=== PATIENT | male | born 1995 | race Caucasian/White ===

== ENCOUNTER → 2016-08-25 | Outpatient (CLI) | payer BC ==
--- NOTE | 2016-08-26 06:52 | CT ---
EXAMINATION TYPE: CT brain w con DATE OF EXAM: 08/25/2016 7:30 PM COMPARISON: NONE HISTORY: Pt states of PERDOMO and near syncope x1 week ago. CT DLP: 945.9 mGycm Automated exposure control for dose reduction was used. CONTRAST: CT scan of the head is performed with IV Contrast, patient injected with 100 mL of Omnipaque 300. FINDINGS: Central structures are midline. There is no evidence of hydrocephalus. No acute focal lesion, mass ef fect or midline shift is seen. I do not see evidence of intracranial blood. There is no abnormal enha ncement. There is chronic mucoperiosteal disease involving the ethmoid and sphenoid sinuses bilaterally. There is a 2.9 cm retention cyst or polyp in the right sphenoid sinus and a 1.8 cm retention cyst or polyp in the left ethmoid sinus. Mastoid air cells are clear. IMPRESSION: 1. NO ACUTE INTRACRANIAL ABNORMALITY. 2. CHRONIC SINUS MUCOSAL DISEASE.
== END | disposition home or self-care (01) ==
LOC: RADCTMAIN 18:37
PROVIDERS: ATTEND Internal Medicine
DX: R55 Syncope and collapse (principal); R51 Headache; G51.9 Disorder of facial nerve, unspecified
CPT/HCPCS: 70460; Q9967

== ENCOUNTER → 2018-07-24 | Outpatient (CLI) | payer BC ==
--- NOTE | 2018-07-24 08:53 | US ---
EXAMINATION TYPE: US kidneys/renal and bladder DATE OF EXAM: 07/24/2018 COMPARISON: None CLINICAL HISTORY: R31.9 Hematuria. Microscopic hematuria, patient states having back pain EXAM MEASUREMENTS: Right Kidney: 10.8 x 5.1 x 4.5 cm Left Kidney: 10.4 x 5.0 x 5.3 cm Right Kidney: No hydronephrosis or masses seen Left Kidney: No hydronephrosis or masses seen, prominent left renal cortex Bladder: mildly distended, wnl as visualized Bilateral Jets seen IMPRESSION: Lobulated cortical margin of the left kidney recommend CT scan to exclude neoplasm.
== END | disposition home or self-care (01) ==
LOC: RADUSWWP 08:18
PROVIDERS: ATTEND Internal Medicine
DX: R31.9 Hematuria, unspecified (principal)
CPT/HCPCS: 76770

== ENCOUNTER → 2018-07-30 | Outpatient (CLI) | payer BC | END | disposition home or self-care (01) | LOC: LABWHC1 06:49 | PROVIDERS: ATTEND Internal Medicine | DX: R94.4 Abnormal results of kidney function studies (principal) | CPT/HCPCS: 36415; 82565; 84520 ==

== ENCOUNTER → 2018-08-06 | Outpatient (CLI) | payer BC ==
--- NOTE | 2018-08-06 09:07 | CT ---
EXAMINATION TYPE: CT abdomen wo/w con DATE OF EXAM: 08/06/2018 COMPARISON: 12/04/2011 HISTORY: Abn US of Lt kidney, back pain CT DLP: 1630 mGycm Automated exposure control for dose reduction was used. TECHNIQUE: Helical acquisition of images was performed from the lung bases through the top of iliac crest to include entire abdomen. CONTRAST: Performed with Oral Contrast and without and with IV Contrast, patient injected with 100 mL of Isovue 300. FINDINGS: LUNG BASES: No significant abnormality is appreciated. LIVER/GB: No significant abnormality is appreciated. PANCREAS: No significant abnormality is seen. SPLEEN: No significant abnormality is seen. ADRENALS: No significant abnormality is seen. KIDNEYS: No evidence for renal mass. Hydronephrosis not present. No nephrolithiasis. BOWEL: No significant abnormality is seen. LYMPH NODES: No significant abnormality is seen. OSSEOUS STRUCTURES: No significant abnormality is seen. FREE AIR: No free air is visualized. OTHER: IMPRESSION: NO DISTINCT ABNORMALITY IDENTIFIED.
== END | disposition home or self-care (01) ==
LOC: RADCTMAIN 07:49
PROVIDERS: ATTEND Internal Medicine
DX: R31.9 Hematuria, unspecified (principal); N28.9 Disorder of kidney and ureter, unspecified
CPT/HCPCS: 74170

== ENCOUNTER → 2019-04-25 | Outpatient (CLI) | payer BC ==
--- NOTE | 2019-04-25 11:06 | FL ---
EXAMINATION TYPE: FL barium swallow DATE OF EXAM: 04/25/2019 LIMITED UGI-ESOPHAGRAM: CLINICAL HISTORY: Lamont fundoplication surgery in 2012 for hiatal hernia and ulcers with recurrent sore throat, voice hoarseness, and headache. No relief on restarting reflux medication. TECHNIQUE: Limited esophagram is performed utilizing 20 oz of thin barium. A total of 0.38 minutes o f fluoroscopic time was utilized during procedure. 28 spot images are saved to PACS. FINDINGS: The patient swallowed contrast without difficulty or delay. Esophageal peristalsis and mo tility are within normal limits. There is good flow of contrast along the diaphragmatic hiatus into t he stomach, there is no evidence of contrast extravasation to suggest leak. No recurrent hiatal herni a is seen. Patient remains asymptomatic. IMPRESSION: No evidence of recurrent hernia or significant obstruction status post Lamont fundoplicat ion surgery 2011. Unremarkable study.
== END | disposition home or self-care (01) ==
LOC: RADUSWWP 10:01
PROVIDERS: ATTEND Otolaryngology Otolaryngology/Facial Plastic Surgery
DX: K21.9 Gastro-esophageal reflux disease without esophagitis (principal); Z98.890 Other specified postprocedural states
CPT/HCPCS: 74220

== ENCOUNTER 2020-07-05 18:38 | Emergency (ER) | payer BC, OTHER ==
[2020-07-05 18:55] VITALS: BP 129/85; PULSE 85; RESP 18; TEMP 98.8
[2020-07-05] MEDS ORDERED: SODIUM CHLORIDE 0.9% 1,000 ML IV STA (19:05)
--- NOTE | 2020-07-05 19:07 | ED ---
SOB HPI - General Chief Complaint: Shortness of Breath Stated Complaint: +Covid, SOB Time Seen by Provider: 07/05/20 18:57 Source: patient Mode of arrival: ambulatory Limitations: no limitations - History of Present Illness Initial Comments: Patient is 25-year-old male presents emergency department for any shortness of breath. He did report that he tested positive for Covid on Sunday. She noted that today's about day 5 and noted that he had increased dyspnea on exertion while walking on the toilet today. He stated that he works a few first few days before he got tested. He was in no apparent pain or distress while sitting up in bed. He wanted to come in just to make sure that nothing was more serious. He denied any chest pain cough, productive cough, dizziness, lightheadedness, fever, fatigue, chills, nausea, vomiting, diarrhea, constipation - Related Data Home Medications Medication Instructions Recorded Confirmed Acetaminophen Tab [Tylenol Tab] 500 - 1,000 mg PO Q6H PRN 07/05/20 07/05/20 Dextroamphetamine/Amphetamine 20 mg PO TID 07/05/20 07/05/20 [Adderall] guaiFENesin [Mucinex] 1,200 mg PO BID PRN 07/05/20 07/05/20 Previous Rx's Medication Instructions Recorded predniSONE 50 mg PO DAILY #5 tab 07/05/20 Allergies Allergy/AdvReac Type Severity Reaction Status Date / Time oxycodone Allergy Unknown Verified 07/05/20 19:33 Penicillins Allergy Abdominal Verified 07/05/20 19:33 Pain Review of Systems ROS Statement: Those systems with pertinent positive or pertinent negative responses have been documented in the HPI. ROS Other: All systems not noted in ROS Statement are negative. Past Medical History Past Medical History: No Reported History History of Any Multi-Drug Resistant Organisms: None Reported Past Surgical History: Appendectomy, Hernia Repair, Orthopedic Surgery Past Psychological History: ADD/ADHD Smoking Status: Never smoker Past Alcohol Use History: Occasional Past Drug Use History: None Reported General Exam Limitations: no limitations General appearance: alert, in no apparent distress Head exam: Present: atraumatic, normocephalic, normal inspection Eye exam: Present: normal appearance, PERRL, EOMI. Absent: scleral icterus, conjunctival injection, periorbital swelling ENT exam: Present: normal exam, mucous membranes moist Neck exam: Present: normal inspection. Absent: tenderness, meningismus, lymphadenopathy Respiratory exam: Present: normal lung sounds bilaterally. Absent: respiratory distress, wheezes, rales, rhonchi, stridor Cardiovascular Exam: Present: regular rate, normal rhythm, normal heart sounds. Absent: systolic murmur, diastolic murmur, rubs, gallop, clicks GI/Abdominal exam: Present: soft, normal bowel sounds. Absent: distended, tenderness, guarding, rebound, rigid Extremities exam: Present: normal inspection, full ROM, normal capillary refill. Absent: tenderness, pedal edema, joint swelling, calf tenderness Back exam: Present: normal inspection Neurological exam: Present: alert, oriented X3, CN II-XII intact Psychiatric exam: Present: normal affect, normal mood Skin exam: Present: warm, dry, intact, normal color. Absent: rash Course Vital Signs 07/05/20 18:52 Temperature 98.8 F Pulse Rate 85 Respiratory 18 Rate Blood Pressure 129/85 O2 Sat by Pulse 100 Oximetry Medical Decision Making - Medical Decision Making 25-year-old male complaining of dyspnea on exertion status post testing positive for Covid on Sunday Chest x-ray, labs, EKG ordered. Labs unremarkable Case discussed with Dr. Delong, was decided the patient discharged home with conservative minutes. - Lab Data Result diagrams: 07/05/20 19:18 07/05/20 19:18 Lab Results 07/05/20 07/05/20 07/05/20 Range/Units 19:18 19:18 19:18 WBC 4.4 (3.8-10.6) k/uL RBC 5.47 (4.30-5.90) m/uL Hgb 16.4 (13.0-17.5) gm/dL Hct 47.6 (39.0-53.0) % MCV 87.1 (80.0-100.0) fL MCH 29.9 (25.0-35.0) pg MCHC 34.4 (31.0-37.0) g/dL RDW 12.5 (11.5-15.5) % Plt Count 274 (150-450) k/uL MPV 6.7 Neutrophils % 43 % Lymphocytes % 44 % Monocytes % 7 % Eosinophils % 2 % Basophils % 2 % Neutrophils # 1.9 (1.3-7.7) k/uL Lymphocytes # 1.9 (1.0-4.8) k/uL Monocytes # 0.3 (0-1.0) k/uL Eosinophils # 0.1 (0-0.7) k/uL Basophils # 0.1 (0-0.2) k/uL Sodium 139 (137-145) mmol/L Potassium 4.0 (3.5-5.1) mmol/L Chloride 106 (98-107) mmol/L Carbon Dioxide 25 (22-30) mmol/L Anion Gap 8 mmol/L BUN 19 (9-20) mg/dL Creatinine 0.84 (0.66-1.25) mg/dL Est GFR (CKD-EPI)AfAm >90 (>60 ml/min/1.73 sqM) Est GFR (CKD-EPI)NonAf >90 (>60 ml/min/1.73 sqM) Glucose 112 H (74-99) mg/dL Plasma Lactic Acid Isauro 1.4 (0.7-2.0) mmol/L Calcium 9.1 (8.4-10.2) mg/dL Total Bilirubin 0.4 (0.2-1.3) mg/dL AST 25 (17-59) U/L ALT 33 (4-49) U/L Alkaline Phosphatase 53 (38-126) U/L Total Protein 6.9 (6.3-8.2) g/dL Albumin 4.2 (3.5-5.0) g/dL - EKG Data -: EKG Interpreted by Vt EKG shows normal: sinus rhythm Rate: normal EKG Comments: Ventricular rate 70 bpm, DC interval 160 ms, QRS duration 84 ms, QT/QTC 378/408 ms, PareT axis 27/48/40. Normal sinus rhythm, normal ECG. - Radiology Data Radiology results: report reviewed, image reviewed No acute cardiopulmonary process Disposition Clinical Impression: Shortness of breath Disposition: HOME SELF-CARE Condition: Stable Instructions (If sedation given, give patient instructions): Coronavirus Disease 2019 (COVID-19), Shortness of Breath (ED) Additional Instructions: Please return to the Emergency Department if symptoms worsen or any other concerns. Avoid strenuous physical activity for several days Follow-up with primary care in 1-2 days Take steroids as prescribed. Is patient prescribed a controlled substance at d/c from ED?: No Referrals: Krista Pablo MD [Primary Care Provider] - 1-2 days Time of Disposition: 20:16
[2020-07-05 19:37] LABS: Basophils # (A) 0.1 k/uL (0-0.2); Basophils % (A) 2 %; Eosinophils # (A) 0.1 k/uL (0-0.7); Eosinophils % (A) 2 %; HCT 47.6 % (39.0-53.0); HGB 16.4 gm/dL (13.0-17.5); Lymphocytes # (A) 1.9 k/uL (1.0-4.8); Lymphocytes % (A) 44 %; MCH 29.9 pg (25.0-35.0); MCHC 34.4 g/dL (31.0-37.0); MCV 87.1 fL (80.0-100.0); Mean Platelet Volume 6.7; Monocytes # (A) 0.3 k/uL (0-1.0); Monocytes % (A) 7 %; Neutrophils # (A) 1.9 k/uL (1.3-7.7); Neutrophils % (A) 43 %; Platelet Count 274 k/uL (150-450); RBC 5.47 m/uL (4.30-5.90); RDW 12.5 % (11.5-15.5); WBC 4.4 k/uL (3.8-10.6)
[2020-07-05 19:54] LABS: ALT 33 U/L (4-49); AST 25 U/L (17-59); African American GFR (CKD) >90 (>60 ml/min/1.73 sqM); Albumin 4.2 g/dL (3.5-5.0); Alkaline Phosphatase 53 U/L (38-126); Anion Gap 8 mmol/L; Blood Urea Nitrogen 19 mg/dL (9-20); Calcium 9.1 mg/dL (8.4-10.2); Carbon Dioxide 25 mmol/L (22-30); Chloride 106 mmol/L (98-107); Glucose 112 mg/dL (74-99); Non-African American GFR(CKD) >90 (>60 ml/min/1.73 sqM); Sodium 139 mmol/L (137-145); Total Bilirubin 0.4 mg/dL (0.2-1.3); Total Protein 6.9 g/dL (6.3-8.2)
--- NOTE | 2020-07-05 20:01 | XR ---
EXAMINATION TYPE: XR chest 2V DATE OF EXAM: 07/05/2020 COMPARISON: NONE HISTORY: Shortness of breath. TECHNIQUE: Frontal and lateral views of the chest are obtained. FINDINGS: There is no focal air space opacity, pleural effusion, or pneumothorax seen. The cardiac silhouette size is within normal limits. The osseous structures are intact. IMPRESSION: No acute cardiopulmonary process.
== END 2020-07-05 20:42 | disposition home or self-care (01) ==
LOC: EC 18:38
DX: U07.1 COVID-19 (principal); F90.9 Attention-deficit hyperactivity disorder, unspecified type; Z79.899 Other long term (current) drug therapy; Z88.0 Allergy status to penicillin; Z88.8 Allergy status to other drugs, medicaments and biological substances; Z90.49 Acquired absence of other specified parts of digestive tract
CPT/HCPCS: 36415; 71046; 80053; 83605; 85025; 93005; 96360; 99285

== ENCOUNTER → 2020-08-18 | Outpatient (CLI) | payer BC, OTHER ==
--- NOTE | 2020-08-18 16:11 | US ---
EXAMINATION TYPE: US abdomen complete DATE OF EXAM: 08/18/2020 COMPARISON: NONE CLINICAL HISTORY: R10.11 Right upper quadrant pain. EXAM MEASUREMENTS: Liver Length: 13.9 cm Gallbladder Wall: 0.1 cm CBD: 0.4 cm Spleen: 10.4 cm Right Kidney: 12.3 x 4.7 x 5.1 cm Left Kidney: 11.1 x 5.3 x 5.4 cm Excessive overlying midline bowel gas. Pancreas: Obscured by bowel gas Liver: wnl Gallbladder: wnl Evidence for sonographic Borges's sign: CBD: wnl Spleen: wnl Right Kidney: No hydronephrosis or masses seen. inferior pole obscured by bowel gas Left Kidney: No hydronephrosis or masses seen Upper IVC: wnl Abd Aorta: Proximal portion obscured by overlying bowel gas IMPRESSION: 1. Visualized abdomen ultrasound is unremarkable. Exam is limited by excessive bowel gas present at t he time of this exam
== END | disposition home or self-care (01) ==
LOC: RADUSWWP 06:57
PROVIDERS: ATTEND Family Medicine
DX: R14.3 Flatulence (principal)
CPT/HCPCS: 76700

== ENCOUNTER 2021-02-17 21:07 | Emergency (ER) | payer BC, OTHER ==
[2021-02-17 21:15] VITALS: BP 148/81; PULSE 82; RESP 20; TEMP 98.2
[2021-02-17] MEDS ORDERED: hydrOXYzine HCL 25 MG TAB PO STA (22:01)
--- NOTE | 2021-02-17 22:03 | ED ---
General Adult HPI - General Chief complaint: Dizziness Stated complaint: Dizziness,Bump behind ear Time Seen by Provider: 02/17/21 21:22 Source: patient Mode of arrival: ambulatory Limitations: no limitations - History of Present Illness Initial comments: 25-year-old male presents to emergency department with a chief complaint of a mass behind the ear and some dizziness. Patient reports he noticed the "bump" about 1 hour ago prior to arrival. Patient reports it is tender to touch but denies any significant erythema in the region. Denies any changes in his hearing or pain with pulling on the auricle. He denies any discharge from the ear. Denies any fevers or chills. He also reports feeling slightly dizzy where the room is spinning around him but denies any light headedness. States this is intermittent but it has resolved at this time. Denies any headaches visual changes one-sided weakness or paresthesias at this time. - Related Data Home Medications Medication Instructions Recorded Confirmed Dextroamphetamine/Amphetamine 10 - 20 mg PO TID PRN 07/05/20 02/17/21 [Adderall] Previous Rx's Medication Instructions Recorded hydrOXYzine HCL [Atarax] 25 mg PO TID PRN #15 tab 02/17/21 Allergies Allergy/AdvReac Type Severity Reaction Status Date / Time oxycodone Allergy Unknown Verified 02/17/21 22:02 Penicillins Allergy Abdominal Verified 02/17/21 22:02 Pain Review of Systems ROS Statement: Those systems with pertinent positive or pertinent negative responses have been documented in the HPI. ROS Other: All systems not noted in ROS Statement are negative. Past Medical History Past Medical History: No Reported History History of Any Multi-Drug Resistant Organisms: None Reported Past Surgical History: Appendectomy, Hernia Repair, Orthopedic Surgery Past Psychological History: ADD/ADHD Smoking Status: Former smoker Past Alcohol Use History: Occasional Past Drug Use History: None Reported General Exam Limitations: no limitations General appearance: alert, in no apparent distress Head exam: Present: atraumatic, normocephalic, normal inspection Eye exam: Present: normal appearance, PERRL, EOMI Pupils: Present: normal accommodation ENT exam: Present: normal exam, normal oropharynx, mucous membranes moist, TM's normal bilaterally, normal external ear exam (Posterior auricular lymph node, right side.) Neck exam: Present: normal inspection, full ROM. Absent: tenderness, lymphadenopathy Respiratory exam: Present: normal lung sounds bilaterally. Absent: respiratory distress, rales Cardiovascular Exam: Present: regular rate, normal rhythm, normal heart sounds. Absent: systolic murmur Extremities exam: Present: normal inspection, full ROM. Absent: tenderness Back exam: Present: normal inspection, full ROM. Absent: tenderness, CVA tenderness (R) Neurological exam: Present: alert, oriented X3 Psychiatric exam: Present: normal affect, normal mood Skin exam: Present: warm, dry, intact, normal color Course Vital Signs 02/17/21 21:11 Temperature 98.2 F Pulse Rate 82 Respiratory 20 Rate Blood Pressure 148/81 O2 Sat by Pulse 100 Oximetry Medical Decision Making - Medical Decision Making 25-year-old male presents to emergency Department with a chief complaint of a mass behind the ear. Physical examination I do suspect this to be a lymph node. Rest of ENT examination is unremarkable. I have no concern for otitis media or externa. Have low concern for mastoiditis at this time. However, did offer the patient CT imaging, he declined. I gave him contact information to follow up with ENT specialist. Return parameters were thoroughly discussed the patient is standing and agreeable. Disposition Clinical Impression: Lymph nodes enlarged Disposition: HOME SELF-CARE Condition: Stable Instructions (If sedation given, give patient instructions): Lymphadenopathy (ED) Additional Instructions: Follow-up with an ENT specialist. Return to emergency department if symptoms worsen. Prescriptions: hydrOXYzine HCL [Atarax] 25 mg PO TID PRN #15 tab PRN Reason: Vertigo Is patient prescribed a controlled substance at d/c from ED?: No Referrals: Krista Pablo MD [Primary Care Provider] - 1-2 days Javy Fritz MD [STAFF PHYSICIAN] - 1-2 days Time of Disposition: 22:03
== END 2021-02-17 22:11 | disposition home or self-care (01) ==
LOC: EC 21:07
DX: R59.0 Localized enlarged lymph nodes (principal); F90.9 Attention-deficit hyperactivity disorder, unspecified type; Z88.0 Allergy status to penicillin; Z88.5 Allergy status to narcotic agent; Z90.49 Acquired absence of other specified parts of digestive tract; Z87.891 Personal history of nicotine dependence
CPT/HCPCS: 99283

== ENCOUNTER → 2021-04-16 | Outpatient (CLI) | payer OTHER ==
[2021-04-16 12:18] LABS: T4, Free (Free Thyroxine) 1.24 ng/dL (0.800-1.800)
== END | disposition home or self-care (01) ==
LOC: LABWHC1 08:27
PROVIDERS: ATTEND Internal Medicine
DX: E66.9 Obesity, unspecified (principal)
CPT/HCPCS: 36415; 84439; 84443; 84481

== ENCOUNTER 2024-06-20 15:50 | Emergency (ER) | payer OTHER ==
[2024-06-20 16:14] VITALS: RESP 18
[2024-06-20] MEDS: MECLIZINE 12.5 MG TAB PO STA (16:54)
[2024-06-20] MEDS: ACETAMINOPHEN TAB 500 MG TAB PO STA (16:54)
[2024-06-20] MEDS: SODIUM CHLORIDE 0.9% 1,000 ML IV STA (17:00)
--- NOTE | 2024-06-20 17:07 | ED ---
Dizziness HPI - General Chief Complaint: Neuro Symptoms/Deficit Stated Complaint: dizziness,neck pain Time Seen by Provider: 06/20/24 16:30 Source: patient, RN notes reviewed Mode of arrival: ambulatory Limitations: no limitations - History of Present Illness Initial Comments: This is a 29-year-old male who presents to the emergency department for dizzin ess and neck pain. 2 days ago the patient was playing around with his son and he felt a pop in the back of his neck. He developed an immediate headache afterwards along with dizziness and nausea. He states that the headache has since started to subside to some extent, but is still present and bothersome. His concern is now that he feels very dizzy, especially when standing up. He also still feels a pain in the back of his neck, but is still able to fully turn his head. Denies any residual nausea with this. Denies any history of similar pain in the past. MD Complaint: dizziness - Related Data Home Medications Medication Instructions Recorded Confirmed Dextroamphetamine/Amphetamine 10 - 20 mg PO TID PRN 07/05/20 02/17/21 [Adderall] Previous Rx's Medication Instructions Recorded hydrOXYzine HCL [Atarax] 25 mg PO TID PRN #15 tab 02/17/21 Ketorolac [Toradol] 10 mg PO Q6HR PRN #15 tab 06/20/24 Meclizine HCl [Dramamine] 25 mg PO QID PRN #20 tab 06/20/24 methocarbamoL [Robaxin-750] 1,500 mg PO TID PRN #30 tab 06/20/24 Allergies Allergy/AdvReac Type Severity Reaction Status Date / Time oxycodone Allergy Unknown Verified 06/20/24 16:09 Penicillins Allergy Abdominal Verified 06/20/24 16:09 Pain Review of Systems ROS Statement: Those systems with pertinent positive or pertinent negative responses have been documented in the HPI. ROS Other: All systems not noted in ROS Statement are negative. Past Medical History Past Medical History: No Reported History History of Any Multi-Drug Resistant Organisms: None Reported Past Surgical History: Appendectomy, Hernia Repair, Orthopedic Surgery Additional Past Surgical History / Comment(s): miniscus surgery bilateral knees Past Psychological History: ADD/ADHD Smoking Status: Former smoker Past Alcohol Use History: Occasional Past Drug Use History: None Reported General Exam Limitations: no limitations General appearance: alert, in no apparent distress Head exam: Present: atraumatic, normocephalic, normal inspection Eye exam: Present: normal appearance, PERRL, EOMI. Absent: scleral icterus, conjunctival injection, periorbital swelling Respiratory exam: Present: normal lung sounds bilaterally. Absent: respiratory distress, wheezes, rales, rhonchi, stridor Cardiovascular Exam: Present: regular rate, normal rhythm, normal heart sounds. Absent: systolic murmur, diastolic murmur, rubs, gallop, clicks Neurological exam: Present: alert, oriented X3, CN II-XII intact Expanded Cerebellar function: Finger to Nose: Normal, Heel to Goldberg: Normal, Romberg: Normal Upper motor neuron: Pronator Drift: Normal Motor strength exam: RUE: 5, LUE: 5, RLE: 5, LLE: 5 Psychiatric exam: Present: normal affect, normal mood Skin exam: Present: warm, dry, intact, normal color. Absent: rash Course Vital Signs 06/20/24 06/20/24 16:09 19:48 Temperature 98 F 99.5 F Pulse Rate 72 63 Respiratory 18 18 Rate Blood Pressure 133/80 110/69 O2 Sat by Pulse 100 99 Oximetry Medical Decision Making - Medical Decision Making This is a 29 year old male who presents to the emergency department for a headache and dizziness. Was pt. sent in by a medical professional or institution? @ -No Did you speak to anyone other than the patient for history? @ -No Did you review nursing and triage notes? @ -Yes, and I agree, it is accurate with regards to the patient's symptoms. Were old charts reviewed? @ -No Differential Diagnosis? @ -Differential Headache: Migraine, tension, cluster, carbon monoxide, central venous thrombosis, pension karma temporal arteritis, acute closure glaucoma, intercranial hemorrhage, mastoiditis, sinusitis, head injury, this is not meant to be an all-inclusive list. EKG interpreted by me (3pts min.)? @ -Not obtained X-rays interpreted by me (1pt min.)? @ -Not obtained CT interpreted by me (1pt min.)? @ -CT scan of the brain obtained. My interpretation identifies no evidence of an acute intracranial hemorrhage. CTA of the head and neck obtained. My interpretation identifies no evidence of aneurysm. U/S interpreted by me (1pt. min.)? @ -Not obtained What testing was considered but not performed? (CT, X-rays, U/S, labs)? Why? @ -None What meds were considered but not given? Why? @ -None Did you discuss the management of the patient with other professionals? @ -No Did you reconcile home meds? @ -No Was smoking cessation discussed for >3mins.? @ -No Was critical care preformed (if so, how long)? @ -No Were there social determinants of health that impacted care today? How? (Homelessness, low income, unemployed, alcoholism, drug addiction, transportation, low edu. Level, literacy, decrease access to med. care, senior living, rehab)? @ -No Was there de-escalation of care discussed even if they declined? (Discuss DNR or withdrawal of care, Hospice)? @ -No What co-morbidities impacted this encounter? (DM, HTN, Smoking, COPD, CAD, Cancer, CVA, Hep., AIDS, mental health diagnosis, sleep apnea, morbid obesity)? @ -None Was patient admitted / discharged? @ -Discharged. Patient's NIH was 0 and he had no neurological deficits. Lab work demonstrates mild leukocytosis and was otherwise unremarkable. The description of his symptoms was similar to a thunderclap headache and we proceeded with imaging including a CT scan of the brain and CTA of the head and neck to evaluate for any signs of a subarachnoid hemorrhage. Both images revealed no acute process. His symptoms were controlled in the emergency department. He describes the dizziness as a room spinning sensation and the meclizine he was given did seem to improve this. He was given a prescription for meclizine as well as Toradol and Robaxin for any additional headache and neck pain. Otherwise advised follow-up with his PCP for reevaluation. Patient discharged home in stable condition. Case discussed with ED attending Dr. Rivera. Return precautions reviewed in depth, the patient is instructed to return to the emergency department with any new, worsening, or concerning symptoms. Patient verbalized understanding. Undiagnosed new problem with uncertain prognosis? @ -None Drug Therapy requiring intensive monitoring for toxicity (Heparin, Nitro, Insulin, Cardizem)? @ -None Were any procedures done? @ -None Diagnosis/symptom? @ -Cervical strain, dizziness, headache Acute, or Chronic, or Acute on Chronic? @ -Acute Uncomplicated (without systemic symptoms) or Complicated (systemic symptoms)? @ -Uncomplicated Side effects of treatment? @ -None Exacerbation, Progression, or Severe Exacerbation] @ -Not applicable Poses a threat to life or bodily function? @ -No - Lab Data Result diagrams: 06/20/24 16:48 06/20/24 16:48 Lab Results 06/20/24 06/20/24 06/20/24 Range/Units 16:48 16:48 16:48 WBC 11.1 H (3.8-10.6) k/uL RBC 5.40 (4.30-5.90) m/uL Hgb 15.7 (13.0-17.5) gm/dL Hct 47.5 (39.0-53.0) % MCV 87.9 (80.0-100.0) fL MCH 29.1 (25.0-35.0) pg MCHC 33.1 (31.0-37.0) g/dL RDW 12.8 (11.5-15.5) % Plt Count 340 (150-450) k/uL MPV 6.7 Neutrophils % 66 % Lymphocytes % 25 % Monocytes % 5 % Eosinophils % 2 % Basophils % 1 % Neutrophils # 7.3 (1.3-7.7) k/uL Lymphocytes # 2.8 (1.0-4.8) k/uL Monocytes # 0.6 (0-1.0) k/uL Eosinophils # 0.2 (0-0.7) k/uL Basophils # 0.1 (0-0.2) k/uL PT 10.6 (10.0-12.5) sec INR 1.0 (<1.2) APTT 23.4 (22.0-30.0) sec Sodium 140 (137-145) mmol/L Potassium 4.0 (3.5-5.1) mmol/L Chloride 102 (98-107) mmol/L Carbon Dioxide 26 (22-30) mmol/L Anion Gap 12 mmol/L BUN 19 (9-20) mg/dL Creatinine 0.97 (0.66-1.25) mg/dL Est GFR (CKD-EPI)AfAm >90 (>60 ml/min/1.73 sqM) Est GFR (CKD-EPI)NonAf >90 (>60 ml/min/1.73 sqM) Glucose 90 (74-99) mg/dL Calcium 9.8 (8.4-10.2) mg/dL Magnesium 2.0 (1.6-2.3) mg/dL Total Bilirubin 0.4 (0.2-1.3) mg/dL AST 32 (17-59) U/L ALT 70 H (4-49) U/L Alkaline Phosphatase 59 (38-126) U/L Total Protein 7.4 (6.3-8.2) g/dL Albumin 4.8 (3.5-5.0) g/dL - Radiology Data Radiology results: report reviewed, image reviewed Disposition Clinical Impression: Headache, Neck pain, Dizziness Disposition: HOME SELF-CARE Instructions (If sedation given, give patient instructions): Cervical Strain (ED), Vertigo (ED), Benign Paroxysmal Positional Vertigo (ED), Dizziness (ED) Additional Instructions: Return to the emergency department with any new, worsening, or concerning symptoms. Take the Toradol with Tylenol as needed for pain relief. If you choose to take the Toradol, do not take any other anti-inflammatories such as ibuprofen, take one or the other. You can take the Robaxin as 1 to 2 tablets up to 3-4 times daily. You can take the meclizine up to 4 times daily for feelings of dizziness/vertigo. Follow up with your primary care provider in 1-2 days. Prescriptions: Meclizine HCl [Dramamine] 25 mg PO QID PRN #20 tab PRN Reason: Vertigo methocarbamoL [Robaxin-750] 1,500 mg PO TID PRN #30 tab PRN Reason: Pain Ketorolac [Toradol] 10 mg PO Q6HR PRN #15 tab PRN Reason: Pain Is patient prescribed a controlled substance at d/c from ED?: No Referrals: Amy De Paz MD [Primary Care Provider] - 1-2 days Time of Disposition: 19:39
[2024-06-20 17:24] LABS: Basophils # (A) 0.1 k/uL (0-0.2); Basophils % (A) 1 %; Eosinophils # (A) 0.2 k/uL (0-0.7); Eosinophils % (A) 2 %; HCT 47.5 % (39.0-53.0); HGB 15.7 gm/dL (13.0-17.5); Lymphocytes # (A) 2.8 k/uL (1.0-4.8); Lymphocytes % (A) 25 %; MCH 29.1 pg (25.0-35.0); MCHC 33.1 g/dL (31.0-37.0); MCV 87.9 fL (80.0-100.0); Mean Platelet Volume 6.7; Monocytes # (A) 0.6 k/uL (0-1.0); Monocytes % (A) 5 %; Neutrophils # (A) 7.3 k/uL (1.3-7.7); Neutrophils % (A) 66 %; Platelet Count 340 k/uL (150-450); RDW 12.8 % (11.5-15.5); WBC 11.1 k/uL (3.8-10.6)
[2024-06-20 17:33] LABS: Partial Thromboplastin Time 23.4 sec (22.0-30.0); Prothrombin Time 10.6 sec (10.0-12.5)
[2024-06-20 17:57] LABS: ALT 70 U/L (4-49); AST 32 U/L (17-59); African American GFR (CKD) >90 (>60 ml/min/1.73 sqM); Albumin 4.8 g/dL (3.5-5.0); Alkaline Phosphatase 59 U/L (38-126); Anion Gap 12 mmol/L; Blood Urea Nitrogen 19 mg/dL (9-20); Calcium 9.8 mg/dL (8.4-10.2); Carbon Dioxide 26 mmol/L (22-30); Chloride 102 mmol/L (98-107); Glucose 90 mg/dL (74-99); Non-African American GFR(CKD) >90 (>60 ml/min/1.73 sqM); Sodium 140 mmol/L (137-145); Total Bilirubin 0.4 mg/dL (0.2-1.3); Total Protein 7.4 g/dL (6.3-8.2)
--- NOTE | 2024-06-20 18:35 | CT ---
EXAMINATION TYPE: CT brain wo con DATE OF EXAM: 06/20/2024 6:19 PM COMPARISON: 08/25/2016 CLINICAL INDICATION: Male, 29 years old with history of Thunderclap headache, Thunderclap headache TECHNIQUE: CT of the brain is performed utilizing 3 mm thick sections through the posterior fossa and 3 mm thick sections through the remaining calvarium. Study is performed within 24 hours of arrival to the hospital. Contrast used: mL of , (none if empty) CT DLP: 2008.4 mGycm, Automated exposure control for dose reduction was used. FINDINGS: No abnormal hyperdensity is present to suggest an acute intracranial hemorrhage. No acute subarachnoi d hemorrhage identified. No mass lesion is evident. No acute infarcts are evident. Ventricles and sulci are appropriate for the patient age. There is a retention cyst within the inferior left maxillary sinus. Some opacification of anterior et hmoid air cells is present. Remaining paranasal sinuses and mastoid air cells are clear. IMPRESSION: 1. No acute intracranial process. Follow up MRI can be performed as clinically indicated. [facility], Workstation: [facility], 06/20/2024 6:33 PM
--- NOTE | 2024-06-20 19:23 | CT ---
EXAMINATION TYPE: CT angio head neck DATE OF EXAM: 06/20/2024 6:24 PM COMPARISON: None. CLINICAL INDICATION: Male, 29 years old with history of Thunderclap headache, Thunderclap headache TECHNIQUE: CTA scan is performed with axial images are obtained, coronal and sagittal reformatted johnna ges are reviewed. 3-D reconstructed images are created on an independent workstation and reviewed. S [facility] images are reviewed. NASCET criteria was used in interpretation of this exam? Contrast used:65 mL of Isovue 370 without and with IV Contrast, (none if empty) Oral contrast used: (none if empty) CT DLP: 2008.4 mGycm, Automated exposure control for dose reduction was used. FINDINGS: Carotid/Vascular Structures: Common origin of the left common carotid artery and right subclavian art javed from the innominate. Common carotid arteries bifurcate into internal and external carotid arteries without significant matthew w limiting stenosis. Left vertebral artery is slightly dominant.. Internal carotid arteries and vertebral arteries are patent to the skull base. Cervical of [place]: Vertebral basilar system appears normal. Posterior cerebral vasculature is unrema rkable. Internal carotid arteries bifurcate normally into A1 and M1 segments. A2 segments are normal. The anterior communicating artery is patent. The right posterior communicating artery is patent. The left posterior communicating artery is patent. Other: Lung apices within the field of view are clear. IMPRESSION: 1. No flow-limiting stenosis bilateral carotid bifurcations. 2. Normal [place] of [place]. 3. No suspicious areas for aneurysm or aneurysm rupture. [facility], , 06/20/2024 7:20 PM
[2024-06-20 19:49] VITALS: BP 110/69; PULSE 63; TEMP 99.5
[2024-06-20] MEDS: PROCHLORPERAZINE INJ 10 MG/2 ML VIAL IVP STA (19:52)
[2024-06-20] MEDS: DEXAMETHASONE SOD PHOSPHATE 10 MG/ML 1 ML VIAL IVP STA (19:54)
[2024-06-20] MEDS: KETOROLAC 15 MG/ML 1 ML VIAL IVP STA (19:55)
== END 2024-06-20 20:03 | disposition home or self-care (01) ==
LOC: EC 15:50
DX: S16.1XXA Strain of muscle, fascia and tendon at neck level, initial encounter (principal); R51.9 Headache, unspecified; R42 Dizziness and giddiness; Z88.0 Allergy status to penicillin; Z88.5 Allergy status to narcotic agent; Z87.891 Personal history of nicotine dependence; X58.XXXA Exposure to other specified factors, initial encounter
CPT/HCPCS: 36415; 80053; 83735; 85025; 85610; 85730; 70496; 70450; 70498; 99284; 96374; 96375 ×2; 96361; J0780; J1100; J1885; Q9967